=== PATIENT | male | born 2000 | race Caucasian/White ===

== ENCOUNTER 2024-02-24 15:01 | Emergency (ER) | payer OTHER ==
[2024-02-24 15:13] VITALS: BP 128/70; PULSE 66; RESP 17; TEMP 98.2; BMI 22.4
== END 2024-02-24 16:54 | disposition home or self-care (01) ==
LOC: JER 15:01
DX: S00.03XA Contusion of scalp, initial encounter (principal); R42 Dizziness and giddiness; R11.0 Nausea; W22.8XXA Striking against or struck by other objects, initial encounter; Y99.0 Civilian activity done for income or pay
CPT/HCPCS: 70450-TC; 99284-25